=== PATIENT | female | born 1940 | race African-American/Black ===

== ENCOUNTER 2024-07-11 18:33 | Emergency (ER) | payer MEDICARE ==
[~2024-07-11] VITALS: Ht 152.4 cm; Wt 76.0 kg
[~2024-07-11 18:33] MED LIST: ASPI-1073 PO; CHOL50003 PO; CYAN1LOZ *; METH-371 PO; METO-539 MT
[2024-07-11 18:45] VITALS: O2SAT 96
[2024-07-11 21:45] VITALS: BP 166/56; PULSE 60; RESP 18; TEMP 36.5; O2SAT 97
== END 2024-07-11 21:49 | disposition home or self-care (01) ==
LOC: ER 18:33
DX: U07.1 COVID-19 (principal); M79.672 Pain in left foot; M79.671 Pain in right foot; I10 Essential (primary) hypertension; E03.9 Hypothyroidism, unspecified; Z79.82 Long term (current) use of aspirin; Z90.710 Acquired absence of both cervix and uterus; Z79.899 Other long term (current) drug therapy; Z88.8 Allergy status to other drugs, medicaments and biological substances
CPT/HCPCS: 99282